=== PATIENT | female | born 1980 | race Caucasian/White ===

== ENCOUNTER 2025-08-07 08:56 | Outpatient (AMB) | payer OTHER, SELFPAY ==
--- NOTE | 2025-08-07 09:00 | MHC.OFFVIS ---
Intake Visit Reasons: 6m Allergies No Known Allergies Allergy (Verified 08/07/25 09:04) Medication List - Last Reconciled 08/07/25 by Angelica Chamorro CNP atorvastatin 20 mg PO DAILY duloxetine 20 mg PO BID linaclotide (Linzess) 290 mcg PO DAILY metformin ER 1,000 mg PO BID naproxen 500 mg PO BID pregabalin 150 mg PO TID 90 days sertraline 25 mg PO DAILY tirzepatide (Mounjaro) 15 mg subcut QWEEK varenicline tartrate 1 mg PO HPI Comments Details: 44-year-old woman with painful diabetic neuropathy followed by endocrine for diabetic management. She was started on sertraline 25mg in 12/2024 for PMDD and reduced to duloxetine dose to once a day. She was doing okay. Pain was well-controlled with pregabalin and duloxetine daily in the evening. No falls. Blood sugar has been okay, last A1c in 06/2025 was 6.6. She was working with therapist and had appointment with psychologist who recommended trying control for treatment of PMDD, however she did not have appointment with new [employer] until early 2025. [facility] Medical History (Updated 08/07/25 @ 09:03 by Angelica Chamorro CNP) Type 2 diabetes mellitus Anxiety Insomnia Peripheral neuropathy Review of Systems Const Denies chills, Denies daytime sleepiness, Denies difficulty sleeping, Denies fatigue, Denies fever(s), Denies frequent falls, Denies headache(s), Denies increased appetite, Denies poor appetite, Denies snoring, Denies weakness, Denies weight gain and Denies weight loss Eyes Denies loss of vision ENT Denies vertigo, Denies dizziness and Denies headache(s) Card Denies chest pain at rest, Denies chest pain with activity, Denies syncope, Denies leg edema and Denies palpitations Resp Denies snoring GI Denies constipation, Denies heartburn, Denies diarrhea and Denies nausea Denies urinary frequency, Denies urinary incontinence and Denies urinary urgency Musc Denies abnormal gait, Reports numbness and Reports tingling Skin/Breast Denies dry skin and Denies rash Neuro Denies abnormal gait, Denies vertigo, Denies dizziness, Denies syncope, Denies frequent falls, Denies headache(s), Denies lack of coordination, Denies loss of vision, Denies memory loss, Reports numbness, Denies restless legs, Denies seizure-like activity, Reports tingling, Denies paresthesias, Denies tremor(s) and Denies weakness Psych Denies anxiety, Denies depression, Denies auditory hallucinations, Denies memory loss, Denies visual hallucinations and Denies suicidal ideation Endo Denies fatigue and Denies palpitations Physical Exam Const Other: General Appearance:? normal, in no acute distress. Skin:? no rashes, no significant birthmarks. Heart:? S1, S2 normal, no murmurs. Lungs:? clear anteriorly and posteriorly. Extremities:? no edema. Psych:? alert, oriented, cognitive function intact, cooperative with exam. Neuro Other: Mental Status:?Normal attention, orientation, memory and affect.? Cranial Nerves:?Pupils are equal, round and reactive to light. External occular muscles are intact. Visual urena are full. Face is symmetrical. Facial sensations are normal. Tongue is midline. Palate elevates symmetrically. Shoulder shrugging is normal. Hearing to bedside conversation is normal. Coordination:?No ataxia,?no titubation.? Gait Exam: Within normal limits. Cerebellar Signs:?[id number] is okay. Extrapyramidal System:?No tremor, rigidity with normal facial expressions.? Pronator Drift:?Not present.? Involuntary Movements:?No tremors seen.? Speech:?Normal.? 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 Assessment & Plan Assessment & Plan (1) Painful diabetic neuropathy: Code(s): E11.40 - Type 2 diabetes mellitus with diabetic neuropathy, unspecified Category: Medical Plan: She was taking duloxetine 20mg once daily in the evening - new script written to reflect this. Continue pregabalin 150mg 1 capsule three times a day. Continue duloxetine DR 20mg 1 capsule daily. Control blood sugar, stay physically active. Follow up in 6 months or sooner as needed. Medications: New duloxetine 20 mg PO DAILY 90 caps 1RF 90 days Coding Level of Care Code Est Pt Level 4 (05683) Diagnoses Painful diabetic neuropathy E11.40
== END 2025-08-07 09:18 | disposition home or self-care (01) ==
LOC: HO.HSM 08:57
PROVIDERS: PCP Internal Medicine; Visit Provider Registered Nurse
DX: E11.40 Type 2 diabetes mellitus with diabetic neuropathy, unspecified (principal)
CPT/HCPCS: 99214